=== PATIENT | female | born 1970 | race Caucasian/White ===

== ENCOUNTER 2017-10-06 17:39 | Emergency (ER) | payer OTHER ==
[~2017-10-06] VITALS: Ht 162.6 cm; Wt 92.5 kg
[~2017-10-06 17:39] MED LIST: ABILIFY 2 MG2 M1 PO; ABILIFY10 MG PO; ACETAMINOPHEN-1 EAC1; ANTIBIOTIC UNKNOWN; ATIVAN1 MG PO; AURALGAN OTIC S14 ML OT; BRINTELLIX20 MG; BUSPAR 5 MG TABL5 M1; BUTALB-APAP-CA1 EACH PO; CIPROFLOXACIN500 M1 PO; CLONAZEPAM 0.50.5 M1; CLONAZEPAM 1 MG1 M1 PO; DEPAKOTE 250MG250 M1; DEPAKOTE ER500 MG PO; DESYREL; DICLOFENAC SODI25 MG PO; DIFLUCAN150 MG PO; DOXYCYCLINE 10100 MG PO; FIORICET 50-301 EACH PO; FIORICET-COD 51 EACH PO; FIORINAL 50-321 EACH PO; FLEXERIL PO; GABAPENTIN 100100 MG PO; HYDROCODON-ACE1 EA11 PO; HYDROCODON-ACE1 EAC7 PO; HYDROCODON-ACE1 EACH PO; HYDROCODONE-APA1 TA1 PO; HYDROXYZINE PAM50 MG; IMITREX100 MG PO; KEFLEX500 MG PO; KLONOPIN PO; KLONOPIN1 MG PO; LAMICTAL25 MG PO; LATUDA40 MG; LORTABELXR PO; MACROBID 100 M100 M1 PO; MEDROLDOSEPACK PO; MUCINEX D TABL1 EAC1 PO; NEURONTIN 300300 M1; NEURONTIN100 MG PO; NEURONTIN600 MG; NEURONTIN800 MG PO; NICOTINE TRANSD21 M1 TRANSDERM; NOHOMEMEDICATIONS; NORCO 10-325 T1 EACH PO; NORCO 5-325 TA1 EACH PO; ONDANSETRON HCL4 M2 PO; PAROXETINE HCL20 MG; PENICILLIN VK500 M1 PO; PHENERGAN 25 MG25 M1 PO; PREDNISONE 20 M20 M1 PO; PREDNISONE 20 M20 MG PO; PREDNISONE10 MG PO; PROAIR HFA8.5 GM IH; PROAIR HFA8.5 GM INH; RIZATRIPTAN10 M1 PO; RIZATRIPTAN5 MG; SINGULAIR; TESSALON PERLE100 MG PO; TESSALON200 MG PO; TOPAMAX50 MG; TRAMADOL; TRAZADONE; TRAZODONE; VERAPAMIL HCL40 MG PO; ZANAFLEX4 MG PO; ZITHROMAX PO; ZOFRAN ODT4 MG DISSOLVE; ZOFRAN4 MG PO; ZOLOFT25 MG PO; ZOLOFT50 MG PO
[2017-10-06] MEDS ORDERED: HYDROCODONE-AP1 EAC6 PO (19:08)
[2017-10-06 19:15] VITALS: BP 120/86
== END 2017-10-06 19:15 | disposition home or self-care (01) ==
LOC: M.ERS 17:39
DX: M25.561 Pain in right knee (principal); J45.909 Unspecified asthma, uncomplicated; F31.9 Bipolar disorder, unspecified; F41.9 Anxiety disorder, unspecified; G43.909 Migraine, unspecified, not intractable, without status migrainosus; F43.10 Post-traumatic stress disorder, unspecified; F17.210 Nicotine dependence, cigarettes, uncomplicated; Z90.710 Acquired absence of both cervix and uterus; Z90.89 Acquired absence of other organs; Z88.6 Allergy status to analgesic agent; Z90.49 Acquired absence of other specified parts of digestive tract

== ENCOUNTER 2017-11-04 02:20 | Emergency (ER) | payer OTHER ==
[~2017-11-04] VITALS: Ht 162.6 cm; Wt 89.8 kg
[~2017-11-04 02:20] MED LIST changes: +HYDROCODONE-AP1 EAC6 PO
[2017-11-04] MEDS ORDERED: PROZAC20 MG (02:34)
[2017-11-04] MEDS ORDERED: MINIPRESS1 MG (02:35)
[2017-11-04] MEDS ORDERED: ZYPREXA5 MG (02:36)
[2017-11-04] MEDS ORDERED: VISTARIL 25 MG25 M1 PO (02:41)
[2017-11-04 02:54] VITALS: BP 141/86
== END 2017-11-04 02:56 | disposition home or self-care (01) ==
LOC: M.ERS 02:20
DX: F41.9 Anxiety disorder, unspecified (principal); J45.909 Unspecified asthma, uncomplicated; F31.9 Bipolar disorder, unspecified; G43.909 Migraine, unspecified, not intractable, without status migrainosus; F43.10 Post-traumatic stress disorder, unspecified; F17.210 Nicotine dependence, cigarettes, uncomplicated; Z90.710 Acquired absence of both cervix and uterus; Z90.89 Acquired absence of other organs; Z90.49 Acquired absence of other specified parts of digestive tract; Z88.6 Allergy status to analgesic agent

== ENCOUNTER 2017-11-10 14:29 | Emergency (ER) | payer OTHER ==
[~2017-11-10] VITALS: Ht 162.6 cm; Wt 89.8 kg
[~2017-11-10 14:29] MED LIST changes: +MINIPRESS1 MG; +PROZAC20 MG; +VISTARIL 25 MG25 M1 PO; +ZYPREXA5 MG
[2017-11-10] MEDS ORDERED: LAMICTAL100 MG PO (14:44)
[2017-11-10] MEDS ORDERED: FLEXERIL PO (14:44)
[2017-11-10] MEDS ORDERED: HYDROXYZINE HCL25 M1 PO (14:45)
[2017-11-10] MEDS ORDERED: PROZAC20 MG PO (14:45)
[2017-11-10] MEDS ORDERED: BACTRIM DS TAB1 EACH PO (15:25)
[2017-11-10] MEDS ORDERED: LIDOCAINE VISC100 ML MUCOUS MEM (15:25)
[2017-11-10 15:40] VITALS: BP 114/73
== END 2017-11-10 15:41 | disposition home or self-care (01) ==
LOC: M.ERS 14:29
DX: J02.9 Acute pharyngitis, unspecified (principal); K12.2 Cellulitis and abscess of mouth; J45.909 Unspecified asthma, uncomplicated; F31.9 Bipolar disorder, unspecified; F41.9 Anxiety disorder, unspecified; G43.909 Migraine, unspecified, not intractable, without status migrainosus; F43.10 Post-traumatic stress disorder, unspecified; F17.210 Nicotine dependence, cigarettes, uncomplicated; Z90.710 Acquired absence of both cervix and uterus; Z90.89 Acquired absence of other organs; Z90.49 Acquired absence of other specified parts of digestive tract; Z88.6 Allergy status to analgesic agent

== ENCOUNTER 2017-11-25 14:48 | Emergency (ER) | payer OTHER ==
[~2017-11-25] VITALS: Ht 162.6 cm; Wt 92.5 kg
[~2017-11-25 14:48] MED LIST changes: +BACTRIM DS TAB1 EACH PO; +HYDROXYZINE HCL25 M1 PO; +LAMICTAL100 MG PO; +LIDOCAINE VISC100 ML MUCOUS MEM; +PROZAC20 MG PO
[2017-11-25 14:55] VITALS: BP 142/76
[2017-11-25] MEDS ORDERED: MEDROLDOSEPACK PO (15:01)
[2017-11-25] MEDS ORDERED: ROBAXIN500 MG PO (15:01)
== END 2017-11-25 15:21 | disposition home or self-care (01) ==
LOC: M.ERS 14:48
DX: M54.32 Sciatica, left side (principal); S39.012A Strain of muscle, fascia and tendon of lower back, initial encounter; J45.909 Unspecified asthma, uncomplicated; F31.9 Bipolar disorder, unspecified; F41.9 Anxiety disorder, unspecified; G43.909 Migraine, unspecified, not intractable, without status migrainosus; F43.10 Post-traumatic stress disorder, unspecified; F17.210 Nicotine dependence, cigarettes, uncomplicated; Z88.6 Allergy status to analgesic agent; X50.1XXA Overexertion from prolonged static or awkward postures, initial encounter; Y93.89 Activity, other specified; Y92.89 Other specified places as the place of occurrence of the external cause; Y99.8 Other external cause status

== ENCOUNTER 2017-12-05 18:57 | Emergency (ER) | payer OTHER ==
[~2017-12-05] VITALS: Ht 162.6 cm; Wt 94.3 kg
[~2017-12-05 18:57] MED LIST changes: +ROBAXIN500 MG PO
[2017-12-05] MEDS ORDERED: HYDROXYZINE HCL25 M1 PO (19:04)
[2017-12-05] MEDS ORDERED: ONDANSETRON HCL4 M2 PO (19:04)
[2017-12-05] MEDS ORDERED: IMITREX100 MG PO (19:05)
[2017-12-05 19:30] LABS: ABSOLUTE BASOPHILS 0.2 thou/uL (0.0-0.2); ABSOLUTE EOSINOPHILS 0.6 thou/uL (0.0-0.7); ABSOLUTE LYMPHOCYTES 4.5 thou/uL (0.8-5.3); ABSOLUTE MONOCYTES 0.9 thou/uL (0.0-1.2); ABSOLUTE NEUTROPHILS 6.2 thou/uL (1.6-8.1); BASOPHILS 1.4 %; HEMATOCRIT 45.3 % (37.0-47.0); HEMOGLOBIN 15.2 gm/dL (12.0-15.0); LYMPHOCYTES 36.2 %; MCH 30.6 pg (26.0-34.0); MCHC 33.5 g/dL (28.0-37.0); MCV 91.2 fL (80.0-100.0); MONOCYTES 7.6 %; MPV 7.3 fl. (7.2-11.1); NUCLEATED RBCS 0 /100WBC; PLATELET COUNT* 476 thou/uL (150-400); POLYS 49.8 %; RBC 4.96 mil/uL (4.20-5.00); RDW-CV 13.3 % (10.5-14.5); WBC 12.4 thou/uL (4.0-11.0)
[2017-12-05 19:38] LABS: ANION GAP 13 mmol/L (7-16); BUN 11 mg/dL (7-18); CHLORIDE 101 mmol/L (98-107); CO2 23 mmol/L (21-32); GLUCOSE 87 mg/dL (70-99); POTASSIUM 3.9 mmol/L (3.5-5.1); SODIUM 137 mmol/L (136-145)
[2017-12-05 19:49] LABS: ALKALINE PHOSPHATASE 124 U/L (46-116); NT-PRO BRAIN NAT PEPTIDE 47 pg/mL (<300); SGOT 14 U/L (15-37); SGPT 33 U/L (30-65); TOTAL BILIRUBIN 0.4 mg/dL (<0.1-1.0); TOTAL PROTEIN 8.2 g/dL (6.4-8.2); TROPONIN-I LEVEL <0.06 ng/mL (<0.06)
[2017-12-05 20:49] VITALS: BP 121/76
--- NOTE | 2017-12-06 13:28 | EKG ---
[place] [address] ELECTROCARDIOGRAM REPORT Name: NORMA YEAGER Room: [facility]#: [id number] Admission: 12/05/17 Attend Phys: Discharge: 12/05/17 Date of : 70 Report #: [id number] THIS REPORT FOR: //name// 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
== END 2017-12-05 20:52 | disposition home or self-care (01) ==
LOC: M.ERS 18:57
PROVIDERS: Emergency Medicine Emergency Medical Services
DX: F41.9 Anxiety disorder, unspecified (principal); G43.909 Migraine, unspecified, not intractable, without status migrainosus; J45.909 Unspecified asthma, uncomplicated; F31.9 Bipolar disorder, unspecified; F17.210 Nicotine dependence, cigarettes, uncomplicated; Z88.8 Allergy status to other drugs, medicaments and biological substances

== ENCOUNTER 2017-12-25 20:05 | Emergency (ER) | payer MEDICAID ==
[~2017-12-25] VITALS: Ht 162.6 cm; Wt 90.3 kg
[2017-12-25] MEDS ORDERED: [UNRECOGNIZED DRUG - REMARK] (20:16)
[2017-12-25] MEDS ORDERED: LAMICTAL100 MG PO (20:16)
[2017-12-25] MEDS ORDERED: LAMICTAL (20:16)
[2017-12-25] MEDS ORDERED: PROZAC20 MG PO (20:16)
[2017-12-25] MEDS ORDERED: IBUPROFEN 800800 M1 PO (21:24)
[2017-12-25 21:43] VITALS: BP 116/79
== END 2017-12-25 21:40 | disposition home or self-care (01) ==
LOC: M.ERS 20:05
DX: S93.504A Unspecified sprain of right lesser toe(s), initial encounter (principal); J45.909 Unspecified asthma, uncomplicated; F31.9 Bipolar disorder, unspecified; F41.9 Anxiety disorder, unspecified; F43.10 Post-traumatic stress disorder, unspecified; G43.909 Migraine, unspecified, not intractable, without status migrainosus; Z90.710 Acquired absence of both cervix and uterus; Z90.89 Acquired absence of other organs; Z88.6 Allergy status to analgesic agent; Z90.49 Acquired absence of other specified parts of digestive tract; F17.210 Nicotine dependence, cigarettes, uncomplicated; W22.8XXA Striking against or struck by other objects, initial encounter; Y93.89 Activity, other specified; Y92.89 Other specified places as the place of occurrence of the external cause; Y99.8 Other external cause status

== ENCOUNTER 2018-01-14 02:22 | Emergency (ER) | payer MEDICAID ==
[~2018-01-14] VITALS: Ht 162.6 cm; Wt 89.8 kg
[~2018-01-14 02:22] MED LIST changes: +IBUPROFEN 800800 M1 PO; +LAMICTAL; +[UNRECOGNIZED DRUG - REMARK]
[2018-01-14] MEDS ORDERED: HYDROXYZINE HCL25 M1 PO (02:39)
[2018-01-14] MEDS ORDERED: ESTRADIOL 1 MG T1 M1 PO (02:40)
[2018-01-14] MEDS ORDERED: HAIR FORMULA T1 EACH PO (02:40)
[2018-01-14] MEDS ORDERED: DIPHENHIST50 MG PO (02:41)
[2018-01-14 03:14] VITALS: BP 126/71
== END 2018-01-14 03:15 | disposition home or self-care (01) ==
LOC: M.ERS 02:22
DX: T78.40XA Allergy, unspecified, initial encounter (principal); J45.909 Unspecified asthma, uncomplicated; F31.9 Bipolar disorder, unspecified; F41.9 Anxiety disorder, unspecified; G43.909 Migraine, unspecified, not intractable, without status migrainosus; F43.10 Post-traumatic stress disorder, unspecified; F17.210 Nicotine dependence, cigarettes, uncomplicated

== ENCOUNTER 2018-01-26 17:22 | Emergency (ER) | payer MEDICAID ==
[~2018-01-26] VITALS: Ht 162.6 cm; Wt 89.8 kg
[~2018-01-26 17:22] MED LIST changes: +DIPHENHIST50 MG PO; +ESTRADIOL 1 MG T1 M1 PO; +HAIR FORMULA T1 EACH PO
[2018-01-26 18:30] VITALS: BP 103/73
== END 2018-01-26 18:30 | disposition home or self-care (01) ==
LOC: M.ERS 17:22
DX: R51 Headache (principal); J45.909 Unspecified asthma, uncomplicated; F31.9 Bipolar disorder, unspecified; F41.9 Anxiety disorder, unspecified; F17.210 Nicotine dependence, cigarettes, uncomplicated; F43.10 Post-traumatic stress disorder, unspecified; Z88.6 Allergy status to analgesic agent

== ENCOUNTER 2018-05-04 00:13 | Emergency (ER) | payer MEDICAID ==
[~2018-05-04] VITALS: Ht 165.1 cm; Wt 88.9 kg
[2018-05-04] MEDS ORDERED: ABILIFY 5 MG TAB5 MG (00:23)
[2018-05-04 01:01] VITALS: BP 114/68
== END 2018-05-04 01:02 | disposition home or self-care (01) ==
LOC: M.ERS 00:13
DX: M62.838 Other muscle spasm (principal); F41.9 Anxiety disorder, unspecified; G43.909 Migraine, unspecified, not intractable, without status migrainosus; J45.909 Unspecified asthma, uncomplicated; F31.9 Bipolar disorder, unspecified; F17.210 Nicotine dependence, cigarettes, uncomplicated; Z88.6 Allergy status to analgesic agent; Z90.49 Acquired absence of other specified parts of digestive tract; Z90.710 Acquired absence of both cervix and uterus; Z90.89 Acquired absence of other organs

== ENCOUNTER 2018-07-07 21:47 | Emergency (ER) | payer MEDICAID ==
[~2018-07-07] VITALS: Ht 165.1 cm; Wt 92.1 kg
[~2018-07-07 21:47] MED LIST changes: +ABILIFY 5 MG TAB5 MG
[2018-07-07] MEDS ORDERED: ATIVAN1 MG PO (22:18)
[2018-07-07 22:36] VITALS: BP 129/82
== END 2018-07-07 22:36 | disposition home or self-care (01) ==
LOC: M.ERS 21:47
DX: F41.0 Panic disorder [episodic paroxysmal anxiety] (principal); G43.909 Migraine, unspecified, not intractable, without status migrainosus; F17.210 Nicotine dependence, cigarettes, uncomplicated; J45.909 Unspecified asthma, uncomplicated; F31.9 Bipolar disorder, unspecified; M19.90 Unspecified osteoarthritis, unspecified site; Z88.6 Allergy status to analgesic agent; Z90.710 Acquired absence of both cervix and uterus; Z90.89 Acquired absence of other organs; Z90.49 Acquired absence of other specified parts of digestive tract

== ENCOUNTER 2018-08-08 17:21 | Emergency (ER) | payer MEDICAID ==
[~2018-08-08] VITALS: Ht 165.1 cm; Wt 92.1 kg
[2018-08-08] MEDS ORDERED: CLONAZEPAM 0.50.5 M1 PO (17:33)
[2018-08-08 17:45] LABS: URINE BILIRUBIN NEGATIVE (Negative); URINE BLOOD NEGATIVE (Negative); URINE CLARITY CLEAR; URINE COLOR STRAW; URINE GLUCOSE-RANDOM NEGATIVE (Negative); URINE KETONES NEGATIVE (Negative); URINE LEUKOCYTES-REFLEX NEGATIVE (Negative); URINE NITRITE-REFLEX NEGATIVE (Negative); URINE PROTEIN NEGATIVE (Negative); URINE SPECIFIC GRAVITY <= 1.005 (1.005-1.030); URINE UROBILINOGEN 0.2 E.U./dl (0.2-1.0)
[2018-08-08 17:54] LABS: AMP/METHAMP Negative (Negative); BARBITURATES Negative (Negative); BENZODIAZEPINES Negative (Negative); COCAINE Negative (Negative); METHADONE Negative (Negative); OPIATES Negative (Negative); PCP Negative (Negative); THC Negative (Negative)
[2018-08-08 18:01] LABS: ABSOLUTE BASOPHILS 0.2 thou/uL (0.0-0.2); ABSOLUTE EOSINOPHILS 0.6 thou/uL (0.0-0.7); ABSOLUTE LYMPHOCYTES 3.5 thou/uL (0.8-5.3); ABSOLUTE MONOCYTES 0.8 thou/uL (0.0-1.2); ABSOLUTE NEUTROPHILS 4.5 thou/uL (1.6-8.1); BASOPHILS 1.8 %; EOSINOPHILS 6.2 %; HEMATOCRIT 43.4 % (37.0-47.0); HEMOGLOBIN 14.6 gm/dL (12.0-15.0); LYMPHOCYTES 36.7 %; MCH 31.2 pg (26.0-34.0); MCHC 33.7 g/dL (28.0-37.0); MCV 92.5 fL (80.0-100.0); MONOCYTES 8.3 %; NUCLEATED RBCS 0 /100WBC; PLATELET COUNT* 397 thou/uL (150-400); RDW-CV 13.9 % (10.5-14.5); WBC 9.6 thou/uL (4.0-11.0)
[2018-08-08 18:11] LABS: CALCIUM 9.2 mg/dL (8.5-10.1); CREATININE 0.9 mg/dL (0.6-1.3)
[2018-08-08 18:16] LABS: ALBUMIN 3.5 g/dL (3.4-5.0); TOTAL BILIRUBIN 0.1 mg/dL (<0.1-1.0); TOTAL PROTEIN 7.2 g/dL (6.4-8.2)
[2018-08-08 18:17] LABS: SALICYLATE 4.2 mg/dL (2.8-20.0)
[2018-08-08 18:23] LABS: ACETAMINOPHEN < 2 ug/mL (10-30); ALCOHOL < 10 mg/dL (<10)
[2018-08-10 03:55] VITALS: BP 100/63
== END 2018-08-10 03:55 ==
LOC: M.ERS 17:21
PROVIDERS: Family Medicine
DX: R45.851 Suicidal ideations (principal); J45.909 Unspecified asthma, uncomplicated; F31.9 Bipolar disorder, unspecified; F41.9 Anxiety disorder, unspecified; G43.909 Migraine, unspecified, not intractable, without status migrainosus; M13.862 Other specified arthritis, left knee; M13.861 Other specified arthritis, right knee; Z90.49 Acquired absence of other specified parts of digestive tract; Z90.710 Acquired absence of both cervix and uterus; F17.210 Nicotine dependence, cigarettes, uncomplicated; Z88.8 Allergy status to other drugs, medicaments and biological substances

== ENCOUNTER 2019-05-09 13:49 | Emergency (ER) | payer MEDICAID ==
[~2019-05-09] VITALS: Ht 162.6 cm; Wt 89.4 kg
[~2019-05-09 13:49] MED LIST changes: +CLONAZEPAM 0.50.5 M1 PO
[2019-05-09] MEDS ORDERED: LEXAPRO 10 MG T10 M2 PO (14:16)
[2019-05-09] MEDS ORDERED: LITHATE5 MG PO (14:17)
[2019-05-09] MEDS ORDERED: MOBIC7.5 MG PO (14:17)
[2019-05-09 16:00] VITALS: BP 101/70
== END 2019-05-09 16:02 | disposition home or self-care (01) ==
LOC: M.ERS 13:49
DX: G43.909 Migraine, unspecified, not intractable, without status migrainosus (principal); J45.909 Unspecified asthma, uncomplicated; F31.9 Bipolar disorder, unspecified; F41.9 Anxiety disorder, unspecified; F17.210 Nicotine dependence, cigarettes, uncomplicated; Z90.710 Acquired absence of both cervix and uterus; Z90.49 Acquired absence of other specified parts of digestive tract; Z98.890 Other specified postprocedural states; Z88.6 Allergy status to analgesic agent

== ENCOUNTER 2019-05-24 19:18 | Emergency (ER) | payer MEDICAID ==
[~2019-05-24] VITALS: Ht 162.6 cm; Wt 87.5 kg
[~2019-05-24 19:18] MED LIST changes: +LEXAPRO 10 MG T10 M2 PO; +LITHATE5 MG PO; +MOBIC7.5 MG PO
[2019-05-24] MEDS ORDERED: VISTARIL 25 MG25 M1 PO (19:32)
[2019-05-24] MEDS ORDERED: XANAX 0.5 MG0.5 MG PO (19:58)
[2019-05-24 20:33] VITALS: BP 109/65
--- NOTE | 2019-05-25 10:27 | EKG ---
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 : 1970 Requested By: Katelyn Marcelino Order Number: [id number] Reading MD: Kerwin Madera Measurements Intervals [place] Rate: 80 P: 14 MS: 142 QRS: 9 QRSD: 98 T: 11 QT: 417 QTc: 482 Interpretive Statements Sinus rhythm Nonspecific T abnormalities, anterior leads Compared to ECG 12/05/2017 19:05:18 No significant changes Electronically Signed On 05-25-2019 10:26:58 CDT by Kerwin Madera [email or web address] <ELECTRONICALLY SIGNED> By: Kerwin Madera MD, [facility] 05/25/19 1026 29 29 Kerwin Madera MD, FACC /EPI
== END 2019-05-24 20:34 | disposition home or self-care (01) ==
LOC: M.ERS 19:18
DX: F41.9 Anxiety disorder, unspecified (principal); F17.210 Nicotine dependence, cigarettes, uncomplicated; G43.909 Migraine, unspecified, not intractable, without status migrainosus; M17.0 Bilateral primary osteoarthritis of knee; F31.9 Bipolar disorder, unspecified; J45.909 Unspecified asthma, uncomplicated; Z90.710 Acquired absence of both cervix and uterus; Z90.89 Acquired absence of other organs; Z88.6 Allergy status to analgesic agent; Z90.49 Acquired absence of other specified parts of digestive tract

== ENCOUNTER 2019-08-18 23:01 | Emergency (ER) | payer MEDICAID ==
[~2019-08-18] VITALS: Ht 165.1 cm; Wt 83.9 kg
[~2019-08-18 23:01] MED LIST changes: +XANAX 0.5 MG0.5 MG PO
[2019-08-18] MEDS ORDERED: VOLTAREN GEL 1100 GM PO (23:08)
[2019-08-18] MEDS ORDERED: ONZETRA XSAIL11 MG PO (23:08)
[2019-08-18] MEDS ORDERED: METHOCARBAMOL500 M2 PO (23:09)
[2019-08-18] MEDS ORDERED: PROMETHAZINE (23:09)
[2019-08-18] MEDS ORDERED: TROKENDI XR50 MG PO (23:09)
[2019-08-18] MEDS ORDERED: ESCITALOPRA5 MG/5 ML PO (23:10)
[2019-08-18] MEDS ORDERED: LITHIUM CARBON150 MG PO (23:10)
[2019-08-18] MEDS ORDERED: ALL DAY ALLERGY10 M3 PO (23:10)
[2019-08-18] MEDS ORDERED: ZOFRAN4 MG PO (23:11)
[2019-08-18] MEDS ORDERED: OMEPRAZOLE 20 M20 M1 PO (23:11)
[2019-08-19 00:24] VITALS: BP 103/68
== END 2019-08-19 00:25 | disposition home or self-care (01) ==
LOC: M.ERS 23:01
DX: G43.909 Migraine, unspecified, not intractable, without status migrainosus (principal); J45.909 Unspecified asthma, uncomplicated; F31.9 Bipolar disorder, unspecified; F41.9 Anxiety disorder, unspecified; M19.90 Unspecified osteoarthritis, unspecified site; F17.210 Nicotine dependence, cigarettes, uncomplicated; Z90.49 Acquired absence of other specified parts of digestive tract; Z90.89 Acquired absence of other organs; Z90.710 Acquired absence of both cervix and uterus; Z88.8 Allergy status to other drugs, medicaments and biological substances

== ENCOUNTER 2019-09-02 15:11 | Emergency (ER) | payer MEDICAID ==
[~2019-09-02] VITALS: Ht 160 cm; Wt 83.0 kg
[~2019-09-02 15:11] MED LIST changes: +ALL DAY ALLERGY10 M3 PO; +ESCITALOPRA5 MG/5 ML PO; +LITHIUM CARBON150 MG PO; +METHOCARBAMOL500 M2 PO; +OMEPRAZOLE 20 M20 M1 PO; +ONZETRA XSAIL11 MG PO; +PROMETHAZINE; +TROKENDI XR50 MG PO; +VOLTAREN GEL 1100 GM PO
[2019-09-02] MEDS ORDERED: TYLENOL WITH CO1 TA1 PO (15:21)
[2019-09-02] MEDS ORDERED: NORCO 5-325 TA1 EAC1 PO (16:41)
[2019-09-02 16:48] VITALS: BP 121/52
== END 2019-09-02 16:49 | disposition home or self-care (01) ==
LOC: M.ERS 15:11
DX: S90.32XA Contusion of left foot, initial encounter (principal); J45.909 Unspecified asthma, uncomplicated; G43.909 Migraine, unspecified, not intractable, without status migrainosus; F17.210 Nicotine dependence, cigarettes, uncomplicated; Z88.6 Allergy status to analgesic agent; Z90.710 Acquired absence of both cervix and uterus; Z90.49 Acquired absence of other specified parts of digestive tract; Z90.89 Acquired absence of other organs; W22.8XXA Striking against or struck by other objects, initial encounter; Y93.89 Activity, other specified; Y92.89 Other specified places as the place of occurrence of the external cause; Y99.8 Other external cause status

== ENCOUNTER 2019-11-01 20:25 | Emergency (ER) | payer MEDICAID ==
[~2019-11-01] VITALS: Ht 162.6 cm; Wt 87.5 kg
[~2019-11-01 20:25] MED LIST changes: +NORCO 5-325 TA1 EAC1 PO; +TYLENOL WITH CO1 TA1 PO
[2019-11-01] MEDS ORDERED: LEXAPRO20 MG PO (22:51)
[2019-11-01] MEDS ORDERED: LITHIUM CARBON150 MG PO (22:51)
[2019-11-01 23:20] VITALS: BP 121/78
--- NOTE | 2019-11-02 16:31 | EKG ---
[place] [address] ELECTROCARDIOGRAM REPORT Name: NORMA YEAGER Room: [facility]#: [id number] Admission: 11/01/19 Attend Phys: Discharge: 11/01/19 Date of : 70 Date of Service: 11/01/192035 Report #: [id number] THIS REPORT FOR: //name// [facility] ED Test Date: 2019-11-01 Test Time: 20:36:26 Pat Name: NORMA YEAGER Department: Room: Gender: Electronic Assembly: [facility] : 1970 Requested By: Monica Webster Order Number: [id number] Corby MD: Owen Foy Measurements Intervals [place] Rate: 93 P: 21 ND: 138 QRS: 22 QRSD: 96 T: -31 QT: 357 QTc: 445 Interpretive Statements Sinus rhythm Nonspecific T abnormalities, diffuse leads Compared to ECG 05/24/2019 19:30:22 No significant changes Electronically Signed On 11-02-2019 16:30:37 CDT by Owen Foy [email or web address] <ELECTRONICALLY SIGNED> By: Owen Foy MD, [facility] 11/02/190 35 35 Owen Foy MD, FACC /EPI
== END 2019-11-01 23:21 | disposition home or self-care (01) ==
LOC: M.ERS 20:25
DX: F41.9 Anxiety disorder, unspecified (principal); F31.9 Bipolar disorder, unspecified; G43.909 Migraine, unspecified, not intractable, without status migrainosus; M13.869 Other specified arthritis, unspecified knee; F17.210 Nicotine dependence, cigarettes, uncomplicated; Z88.6 Allergy status to analgesic agent; J45.909 Unspecified asthma, uncomplicated; Z90.710 Acquired absence of both cervix and uterus; Z90.89 Acquired absence of other organs

== ENCOUNTER 2020-02-22 21:17 | Emergency (ER) | payer MEDICAID ==
[~2020-02-22] VITALS: Ht 162.6 cm; Wt 88.0 kg
[~2020-02-22 21:17] MED LIST changes: +LEXAPRO20 MG PO
[2020-02-22] MEDS ORDERED: OMEPRAZOLE40 MG PO (21:31)
[2020-02-22] MEDS ORDERED: SUMATRIPTAN5 MG PO (21:32)
[2020-02-22] MEDS ORDERED: FLEXERIL PO (21:32)
[2020-02-22] MEDS ORDERED: TOPAMAX100 MG PO (21:32)
[2020-02-22] MEDS ORDERED: LODINE400 M1 PO (21:32)
[2020-02-22] MEDS ORDERED: ZOFRAN ODT4 MG PO (21:32)
[2020-02-22 21:47] LABS: URINE BLOOD NEGATIVE (Negative); URINE CLARITY CLEAR; URINE COLOR YELLOW; URINE GLUCOSE-RANDOM NEGATIVE (Negative); URINE KETONES NEGATIVE (Negative); URINE LEUKOCYTES-REFLEX NEGATIVE (Negative); URINE NITRITE-REFLEX NEGATIVE (Negative); URINE PROTEIN NEGATIVE (Negative); URINE SPECIFIC GRAVITY 1.025 (1.005-1.030); URINE UROBILINOGEN 0.2 E.U./dl (0.2-1.0)
[2020-02-22 21:52] LABS: ICTOTEST (BILI CONFIRMATORY) Positive (Negative); URINE BILIRUBIN 2+ (Negative)
[2020-02-22 21:55] LABS: AMP/METHAMP Negative (Negative); BARBITURATES Negative (Negative); BENZODIAZEPINES Negative (Negative); COCAINE Negative (Negative); METHADONE Negative (Negative); OPIATES Negative (Negative); PCP Negative (Negative); THC Negative (Negative)
[2020-02-22] MEDS ORDERED: LIDODERM1 EACH TOP (22:11)
[2020-02-22] MEDS ORDERED: MEDROLDOSEPACK PO (22:11)
[2020-02-22 22:23] VITALS: BP 122/76
== END 2020-02-22 22:24 | disposition home or self-care (01) ==
LOC: M.ERS 21:17
PROVIDERS: Emergency Medicine
DX: M77.8 Other enthesopathies, not elsewhere classified (principal); G43.909 Migraine, unspecified, not intractable, without status migrainosus; M13.869 Other specified arthritis, unspecified knee; J45.909 Unspecified asthma, uncomplicated; F17.210 Nicotine dependence, cigarettes, uncomplicated; Z88.6 Allergy status to analgesic agent; Z90.710 Acquired absence of both cervix and uterus; Z90.49 Acquired absence of other specified parts of digestive tract; Z79.899 Other long term (current) drug therapy

== ENCOUNTER 2020-05-12 16:02 | Emergency (ER) | payer MEDICAID ==
[~2020-05-12] VITALS: Ht 162.6 cm; Wt 85.7 kg
[~2020-05-12 16:02] MED LIST changes: +LIDODERM1 EACH TOP; +LODINE400 M1 PO; +OMEPRAZOLE40 MG PO; +SUMATRIPTAN5 MG PO; +TOPAMAX100 MG PO; +ZOFRAN ODT4 MG PO
[2020-05-12 17:04] LABS: INFLUENZA A ANTIGEN Negative (Negative); INFLUENZA B ANTIGEN Negative (Negative)
[2020-05-12] MEDS ORDERED: PREDNISONE 20 M20 MG PO (17:40)
[2020-05-12] MEDS ORDERED: VENTOLIN HFA 1818 GM INH (17:40)
[2020-05-12] MEDS ORDERED: ZPAK PO (17:40)
[2020-05-12 17:51] VITALS: BP 122/74
== END 2020-05-12 17:52 | disposition home or self-care (01) ==
LOC: M.ERS 16:02
PROVIDERS: Nurse Practitioner Family
DX: J98.8 Other specified respiratory disorders (principal); B97.89 Other viral agents as the cause of diseases classified elsewhere; Z20.828 Contact with and (suspected) exposure to other viral communicable diseases; M13.869 Other specified arthritis, unspecified knee; J45.909 Unspecified asthma, uncomplicated; G43.909 Migraine, unspecified, not intractable, without status migrainosus; F17.210 Nicotine dependence, cigarettes, uncomplicated; Z88.6 Allergy status to analgesic agent; Z90.49 Acquired absence of other specified parts of digestive tract; Z90.89 Acquired absence of other organs

== ENCOUNTER 2020-05-30 17:26 | Emergency (ER) | payer MEDICAID ==
[~2020-05-30] VITALS: Ht 162.6 cm; Wt 84.4 kg
[~2020-05-30 17:26] MED LIST changes: +VENTOLIN HFA 1818 GM INH; +ZPAK PO
[2020-05-30] MEDS ORDERED: BUTALB-APAP-CA1 EACH PO (17:41)
[2020-05-30] MEDS ORDERED: IMITREX 25 MG T25 M1 PO (17:41)
[2020-05-30 19:27] VITALS: BP 103/63
== END 2020-05-30 19:34 | disposition home or self-care (01) ==
LOC: M.ERS 17:26
DX: G43.909 Migraine, unspecified, not intractable, without status migrainosus (principal); M54.2 Cervicalgia; J45.909 Unspecified asthma, uncomplicated; M19.90 Unspecified osteoarthritis, unspecified site; F17.210 Nicotine dependence, cigarettes, uncomplicated; Z90.710 Acquired absence of both cervix and uterus; Z90.49 Acquired absence of other specified parts of digestive tract; Z98.890 Other specified postprocedural states; Z90.89 Acquired absence of other organs; Z79.899 Other long term (current) drug therapy; Z88.6 Allergy status to analgesic agent

== ENCOUNTER 2021-03-15 11:15 | Emergency (ER) | payer MEDICAID ==
[~2021-03-15] VITALS: Ht 162.6 cm; Wt 89.8 kg
[~2021-03-15 11:15] MED LIST changes: +IMITREX 25 MG T25 M1 PO
[2021-03-15] MEDS ORDERED: [UNRECOGNIZED DRUG - OTHER] (12:40)
[2021-03-15] MEDS ORDERED: VOLTAREN ARTHRI20 GM TP (12:40)
[2021-03-15 16:58] VITALS: BP 120/81
== END 2021-03-15 16:59 | disposition home or self-care (01) ==
LOC: M.ERS 11:15
DX: S80.02XA Contusion of left knee, initial encounter (principal); Z20.822 Contact with and (suspected) exposure to COVID-19; S90.32XA Contusion of left foot, initial encounter; J45.909 Unspecified asthma, uncomplicated; G43.909 Migraine, unspecified, not intractable, without status migrainosus; F17.210 Nicotine dependence, cigarettes, uncomplicated; Z90.710 Acquired absence of both cervix and uterus; Z90.89 Acquired absence of other organs; Z90.49 Acquired absence of other specified parts of digestive tract; W01.0XXA Fall on same level from slipping, tripping and stumbling without subsequent striking against object, initial encounter; Y93.89 Activity, other specified; Y92.89 Other specified places as the place of occurrence of the external cause; Y99.8 Other external cause status

== ENCOUNTER 2021-04-21 16:50 | Emergency (ER) | payer MEDICAID ==
[~2021-04-21] VITALS: Ht 170.2 cm; Wt 79.8 kg
[~2021-04-21 16:50] MED LIST changes: +VOLTAREN ARTHRI20 GM TP; +[UNRECOGNIZED DRUG - OTHER]
[2021-04-21] MEDS ORDERED: BUTALB-APAP-CA1 EACH PO (17:03)
[2021-04-21] MEDS ORDERED: VISTARIL 25 MG25 M1 PO (17:05)
[2021-04-21 17:15] VITALS: BP 131/70
== END 2021-04-21 17:16 | disposition home or self-care (01) ==
LOC: M.ERS 16:50
DX: F41.9 Anxiety disorder, unspecified (principal); J45.909 Unspecified asthma, uncomplicated; F31.9 Bipolar disorder, unspecified; G43.909 Migraine, unspecified, not intractable, without status migrainosus; M19.90 Unspecified osteoarthritis, unspecified site; F17.210 Nicotine dependence, cigarettes, uncomplicated; Z90.710 Acquired absence of both cervix and uterus; Z98.890 Other specified postprocedural states; Z79.891 Long term (current) use of opiate analgesic; Z79.899 Other long term (current) drug therapy; Z88.8 Allergy status to other drugs, medicaments and biological substances; Z90.49 Acquired absence of other specified parts of digestive tract